=== PATIENT | male | born 1975 | race Two or more races ===

== ENCOUNTER 2018-03-26 03:00 | Emergency (ER) | payer MEDICAID ==
[~2018-03-26] VITALS: Ht 172.7 cm; Wt 104.3 kg
[2018-03-26] MEDS ORDERED: METO-357 PO (03:30)
--- NOTE | 2018-03-26 03:42 | NUR ---
Dr. Bobo at bedside for MSE.
[2018-03-26] MEDS ORDERED: IV NORMAL SALINE 1000 ML BAG IV ONE ×2 (03:45→05:15)
[2018-03-26] MEDS ORDERED: LORAZEPAM 2 MG/1 ML VIAL IV ONE (03:45)
[2018-03-26] MEDS ORDERED: LORAZEPAM 2 MG/1 ML VIAL ONE (04:00)
[2018-03-26 04:17] LABS: CREATININE 0.7 mg/dL (0.6-1.3); POTASSIUM 3.3 mmol/L (3.5-5.1)
[2018-03-26 04:21] LABS: BILIRUBIN,DIRECT 0.4 mg/dL (0.0-0.2); BILIRUBIN,TOTAL 2.8 mg/dL (0.2-1.0); TOTAL PROTEIN, SERUM 8.8 g/dL (6.4-8.2)
[2018-03-26 04:29] LABS: *AMPHETAMINE, URINE NEGATIVE (NEGATIVE); *BARBITURATE, URINE NEGATIVE (NEGATIVE); *CANNABINOID, URINE POSITIVE (NEGATIVE); *COCCAINE, URINE NEGATIVE (NEGATIVE); *OPIATE, URINE NEGATIVE (NEGATIVE); *PHENCYCLIDINE SCREEN,URINE NEGATIVE (NEGATIVE)
[2018-03-26] MEDS ORDERED: MAGNESIUM SULFATE/D5W 100 ML ONE (04:44)
[2018-03-26] MEDS ORDERED: MAGNESIUM SULFATE/D5W 100 ML IV SCH (04:45)
[2018-03-26] MEDS ORDERED: POTASSIUM BICARBONATE/CIT AC 25 MEQ TABLET.EFF ONE (04:45)
[2018-03-26] MEDS ORDERED: POTASSIUM BICARBONATE/CIT AC 25 MEQ TABLET.EFF PO ONE (04:45)
[2018-03-26 05:53] LABS: BASOPHILS # (AUTO) 0.1 K/uL (0.0-8.0); BASOPHILS % (AUTO) 0.7 % (0.0-2.0); EOSINOPHILS # (AUTO) 0.3 K/uL (0.0-0.7); EOSINOPHILS % (AUTO) 2.2 % (0.0-7.0); HEMATOCRIT 48.2 % (36.7-47.1); HEMOGLOBIN 16.5 g/dL (12.5-16.3); LYMPHOCYTES # (AUTO) 4.5 K/uL (20.0-40.0); LYMPHOCYTES % (AUTO) 33.3 % (20.5-51.5); MEAN CORPUSCULAR HGB CONC 34 g/dL (32.5-36.3); MEAN CORPUSCULAR VOLUME 90.6 fL (73.0-96.2); MONOCYTES # (AUTO) 0.9 K/uL (2.0-10.0); MONOCYTES % (AUTO) 6.3 % (0.0-11.0); NEUTROPHILS # (AUTO) 7.8 K/uL (1.8-8.9); NEUTROPHILS % (AUTO) 57.5 % (38.5-71.5); PLATELET COUNT (AUTO) 247 K/uL (152-348); RED BLOOD CELL COUNT(AUTO) 5.32 MIL/uL (4.06-5.63); WHITE BLOOD COUNT (AUTO) 13.5 K/uL (3.6-10.2)
--- NOTE | 2018-03-26 06:19 | NUR ---
Patient discharged to home in stable conditon. Written and verbal after care instructions given. Patient verbalizes understanding of instructions. Pt ambulated out of ER with steady gait, no acute signs of distress, VSS, all belongings taken, IV site discontinued.
[2018-03-26 06:20] VITALS: BP 137/81
== END 2018-03-26 06:21 | disposition home or self-care (01) ==
LOC: ER 03:03
DX: E86.0 Dehydration (principal); I45.10 Unspecified right bundle-branch block; F10.20 Alcohol dependence, uncomplicated; I10 Essential (primary) hypertension; Z79.899 Other long term (current) drug therapy
CPT/HCPCS: 36415; 80048; 80076; 80307; 83735; 85025; 93005; 96361; 96365; 96375; 99285; A4663; J2060; J3475; J7030 ×2